=== PATIENT | male | born 1940 | race Caucasian/White ===

== ENCOUNTER → 2019-07-26 | Outpatient (CLI) | payer MEDICARE, OTHER ==
--- NOTE | 2019-07-26 16:01 | KCIC ---
MRI Cervical Spine Without Contrast History: Cervical disc disorder, radiculopathy, chronic neck pain and stiffness, new right upper extremity numbness the last few days Technique: Multiplanar, multi sequential noncontrast MR imaging was performed of the cervical spine. Comparison: None Findings: There is motion degradation. Cervical cord caliber is within normal limits, no defined or expansile signal abnormality, limited evaluation for subtle signal change due to artifact. Cervical vertebral body stature is overall maintained. There is grade 1 anterior spondylolisthesis C7-T1, negligible anterior spondylolisthesis at T1-T2 and C3-4. There is degree of interbody fusion C3-4 and C4-5, advanced degenerative disc disease C5-6 and to a lesser degree at C6-7 and C7-T1. There is straightening of the cervical spine. There is trace C5-6 endplate edema likely reactive/degenerative in etiology. C2-C3: There is right facet degenerative change. Spinal canal is overall adequate. There is degree of uncovertebral degenerative change. Accurate characterization of the neural foramina is limited due to motion, probable mild neural foramina compromise bilaterally. There is apparently degree of fusion of posterior elements greater on the right. C3-C4: There are posterior osteophytes indenting the ventral thecal sac, central canal narrowed to about 8 mm. There is bilateral facet hypertrophic change. Accurate characterization of the neural foramina is limited due to motion, probable moderate to severe neural foramina compromise bilaterally. C4-C5: There are posterior osteophytes, effacement of ventral subarachnoid space and contact of the ventral cord somewhat greater in the left lateral recess. Central canal is narrowed to about 8 mm with a somewhat greater degree of left lateral recess stenosis. There is fairly severe bilateral facet generative change. There is severe left and moderate to severe right neural foramina compromise. C5-C6: There is disc osteophyte complex and shallow broad protrusion, effacement of ventral subarachnoid space and contact of the ventral cord. There is mild buckling of the ligamentum flavum. Central canal is narrowed to about 6 to 7 mm. There is bilateral facet and uncovertebral degenerative change, severe neural foramina compromise bilaterally. C6-C7: There is disc osteophyte complex and very shallow protrusion. There is buckling of the ligamentum flavum. Central canal is minimally narrowed to about 9 mm. There is facet degenerative change greater on the right. There is uncovertebral degenerative change bilaterally. There is fairly severe right and moderate to severe left neural foramina compromise. C7-T1: There is buckling of the ligamentum flavum. Central canal is adequate about 11 mm. There is bilateral facet degenerative change. There is severe neural foramina compromise bilaterally. Impression: 1. There is spinal stenosis about 6 to 7 mm at C5-C6, to a lesser degree C3-4, C4-C5, and C6-C7. 2. There is multilevel degenerative disc disease. There is degree of interbody fusion C3-4 and C4-5. There is multilevel spondylosis. 3. There is multilevel facet and uncovertebral degenerative change resulting in multilevel cervical neural foramina compromise throughout the cervical spine other than likely mild narrowing bilaterally at C2-3. Accurate catheterization of the neural foramina is somewhat limited due to motion. Electronically signed by: Naren Rubio MD (07/26/2019 3:58 PM) [id number]
== END | disposition home or self-care (01) ==
LOC: KCIC MRI 14:26
PROVIDERS: ATTEND Specialist
DX: M50.122 Cervical disc disorder at C5-C6 level with radiculopathy (principal); M48.02 Spinal stenosis, cervical region; M47.22 Other spondylosis with radiculopathy, cervical region; M43.13 Spondylolisthesis, cervicothoracic region; M25.78 Osteophyte, vertebrae
CPT/HCPCS: 72141